=== PATIENT | female | born 1985 | race Caucasian/White ===

== ENCOUNTER 2017-10-06 17:44 | Emergency (ER) | payer OTHER ==
[2017-10-06 17:55] VITALS: BP 123/60; PULSE 61; TEMP 98.4; BMI 27.9
[2017-10-06] MEDS ORDERED: KETOROLAC TROMETHAMINE 60 MG/2 ML VIAL ONE (18:34)
[2017-10-06] MEDS ORDERED: CYCLOBENZAPRINE HCL 10 MG TABLET (FP) ONE (18:34)
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
== END 2017-10-06 18:55 | disposition home or self-care (01) ==
LOC: JERFT 17:44
DX: S13.4XXA Sprain of ligaments of cervical spine, initial encounter (principal); S63.591A Other specified sprain of right wrist, initial encounter; V49.59XA Passenger injured in collision with other motor vehicles in traffic accident, initial encounter; Y92.488 Other paved roadways as the place of occurrence of the external cause; Y93.89 Activity, other specified; Y99.8 Other external cause status
CPT/HCPCS: 99281-25

== ENCOUNTER 2024-01-03 19:15 | Emergency (ER) | payer OTHER ==
[2024-01-03 19:24] VITALS: RESP 18; BMI 26.6
[2024-01-03] MEDS ORDERED: FAMOTIDINE 20 MG/50 ML IVPB 20 MG/50 ML MG IVPB ONE (19:33)
[2024-01-03] MEDS ORDERED: ONDANSETRON 4 MG/2 ML VIAL ONE (19:33)
[2024-01-03] MEDS: ONDANSETRON 4 MG/2 ML VIAL IVPUSH ONE (19:52)
[2024-01-03] MEDS: FAMOTIDINE 20 MG/50 ML IVPB 20 MG/50 ML MG IVPB ONE (19:52)
[2024-01-03] MEDS: SODIUM CHLORIDE 500 ML IV STA (19:53)
[2024-01-03 20:00] LABS: BASO % 1.5 % (0-2.0); EOS % 3.1 % (0-4.5); MCH 31.2 pg (25.7-33.7); MEAN CELL VOLUME 89.3 fl (80-96); MEAN PLT VOLUME 7.2 fl (7.5-11.1); MONO % 14.3 % (3.8-10.2); NEUT % 54.1 % (42.8-82.8); PLATELET COUNT 240 10^3/uL (134-434); RBC 4.48 M/mm3 (3.60-5.2); RDW 12.8 % (11.6-15.6); WHITE BLOOD COUNT 3.6 K/mm3 (4.0-10.0)
[2024-01-03 20:19] LABS: POTASSIUM 3.9 mmol/L (3.5-5.1)
[2024-01-03 20:22] LABS: ALBUMIN 3.7 g/dl (3.4-5.0)
[2024-01-03 20:26] LABS: CREATININE 0.6 mg/dL (0.55-1.3)
[2024-01-03 20:27] LABS: BILIRUBIN,TOTAL 0.3 mg/dL (0.2-1); TOT PROT 6.8 g/dl (6.4-8.2)
[2024-01-03 21:28] LABS: URINE APPEARANCE CLEAR; URINE BILIRUBIN NEGATIVE (NEGATIVE); URINE COLOR YELLOW; URINE GLUCOSE (UA) NEGATIVE (NEGATIVE); URINE KETONE NEGATIVE (NEGATIVE); URINE LEUK ESTERASE NEGATIVE (NEGATIVE); URINE NITRITE NEGATIVE (NEGATIVE); URINE PROTEIN NEGATIVE (NEGATIVE); URINE UROBILINOGEN 0.2 mg/dL (0.2-1.0)
[2024-01-03] MEDS ORDERED: KETOROLAC TROMETHAMINE 30 MG/1 ML VIAL ONE (21:30)
[2024-01-03 21:32] LABS: HCG,QUALITATIVE URINE Negative
[2024-01-03] MEDS: KETOROLAC TROMETHAMINE 30 MG/1 ML VIAL IVPUSH ONE (21:32)
[2024-01-03 23:49] VITALS: BP 105/62; PULSE 68; TEMP 98.8
[2024-01-04] MEDS ORDERED: POLYETHYLENE GLYCOL (HEALTHYLAX) 3350 17 GM PACKET ONE
[2024-01-04] MEDS: POLYETHYLENE GLYCOL (HEALTHYLAX) 3350 17 GM PACKET PO ONE (00:08)
== END 2024-01-04 00:45 | disposition home or self-care (01) ==
LOC: JER 19:15
PROC: 3E033GC Introduction of Other Therapeutic Substance into Peripheral Vein, Percutaneous Approach (ICD-10-PCS; principal; 2024-01-03)
PROC: 3E033GC Introduction of Other Therapeutic Substance into Peripheral Vein, Percutaneous Approach (ICD-10-PCS; 2024-01-03)
DX: R10.32 Left lower quadrant pain (principal); R11.0 Nausea; K59.00 Constipation, unspecified
CPT/HCPCS: 36415; 74177-TC; 76830-TC; 80053; 81003; 83690; 84702; 84703; 85025; 93005; 93010; 99285-25